=== PATIENT | male | born 1975 | race Caucasian/White ===

== ENCOUNTER 2018-03-13 18:23 | Emergency (ER) | payer BC, SELFPAY ==
[2018-03-13 18:46] VITALS: BP 134/74; PULSE 70; RESP 16; TEMP 36.7; O2SAT 97
--- NOTE | 2018-03-13 19:47 | W.ED.GENAD ---
Discharge Plan Disposition Patient Disposition: HOME Condition: Stable Discharge Details Chief Complaint: EyeProblem Clinical Impression: Foreign body of left eye, Corneal abrasion, left Primary Care Provider: Frederic Banerjee ED Provider: Sallie Purdy Discharge Instructions Instructions: Corneal Abrasion (ED), Eye Foreign Body (ED) Additional Instructions: Apply 2 drops of gentamicin ophthalmic solution in your left eye 6 times daily for the next 5 days. Take Tylenol or Motrin as needed and directed for pain. You should receive a call from care management regarding follow-up with [facility] within the next 1-2 weeks for reevaluation. Return to the emergency department with any worsening or new concerning symptoms. Discharge Data Discharge Date/Time-TO BE ENTERED AT DEPARTURE: 03/13/18 20:08 Discharge Physician: Sallie Purdy Medical Decision Making 42yo M who presents for L eye irritation that started this afternoon while working on a roof at home. No contacts/glasses. Denies blurry vision or discharge. Tetanus up to date. There is a 1-2 mm white speck noted at 1:00 in the left cornea. Tetracaine was applied to left eye and this was easily removed with a cotton swab. fluorescein staining and examining with wood's lamp and slit lamp revealed a corneal abrasion in the same location. No other foreign bodies noted with full exam and eyelid eversion. Patient has allergy to sulfa. Patient declined ointment. Gentamicin ophthalmic drops were placed in left eye and bottle was given for home. Per nurse, visual acuity was within normal limits. There is no documented visual acuity in chart that I was able to locate. Patient admitted to feeling much improved prior to discharge. Patient was placed on care management list to arrange for a follow-up appointment with [facility] in the next 1-2 weeks. Patient was instructed to return to the emergency department with any worsening or new concerning symptoms. HPI General Mode of arrival: ambulatory. Date/Time Provider Initiated Documentation: 03/13/18 18:48. Limitations to Documentation: no limitations. Information obtained by: patient. HPI Narrative: 42-year-old male presents with left eye irritation since this afternoon after working on a roof at home. Patient states he feels like he has something in his eye. He denies blurry vision or discharge. He does not wear contacts or glasses. He states his tetanus is up-to-date within the last 5 years. Past medical history: None Surgical history: None Social history: 4-5 beers daily, daily marijuana use, denies smoking Medications: None Allergies: Sulfa PCP: [facility] Related Data Allergies Allergy/AdvReac Type Severity Reaction Status Date / Time Sulfa (Sulfonamide Allergy Unverified 03/13/18 18:50 Antibiotics) General Stated Complaint: EyeProblem EVANGELINA: 3 Review of Systems Review of Systems All systems reviewed & are unremarkable except as noted in HPI and below PFSH Social History Smoking/Tobacco Use Status: Never Exam Const General: cooperative and healthy appearing Orientation: alert and awake HENMT Head: normal to inspection Ears: hearing grossly normal bilaterally and external ears normal General nose exam: external nose normal Face and sinus: normal facial exam Mouth: oral mucosae normal Eyes General: appearance normal, both eyes and all related structures Visual Arias: normal visual arias by confrontation Alignment and Position: alignment normal Periorbital: periorbital findings normal Eyelids: eyelids normal Conjunctivae: conjunctivae normal Sclera: sclerae normal Cornea: other (1-2 mm white speck noted on left cornea at 1:00. No other foreign body noted. No discharge. ) Pupils: PERRL EOM: EOM intact bilaterally Neck Neck: normal visual inspection Lymphatic: no lymphadenopathy noted Resp Effort & Inspection: normal respiratory effort and able to speak in complete sentences Cardio Rate: regular rate Skin General skin exam: no rashes or lesions noted Neuro General: alert and awake Cognition: normal cognition Speech: speech normal Gait: normal gait Extrem General: normal to inspection and full ROM Psych Appearance: grossly normal Mental Status: mental status grossly normal Speech and Movement: speech and movement normal Affect: normal affect Thought Process: normal Course Vital Signs Temperature 98.1 F 03/13/18 18:46 Pulse 70 03/13/18 18:46 Respiratory Rate 16 03/13/18 18:46 Blood Pressure 134/74 03/13/18 18:46 Pulse Oximetry 97 03/13/18 18:46 Temperature 98.1 F 03/13/18 18:46 Temperature Source Skin 03/13/18 18:46 Pulse 70 03/13/18 18:46 Respiratory Rate 16 03/13/18 18:46 Respiratory Effort 03/13/18 18:47 Blood Pressure 134/74 03/13/18 18:46 Blood Pressure Position Sitting 03/13/18 18:46 Pulse Oximetry 97 03/13/18 18:46 Oxygen Delivery Method Room Air 03/13/18 18:46 Oxygen Flow Rate 0 03/13/18 18:46
--- NOTE | 2018-03-13 19:52 | ED.GENADUL_ITS ---
Discharge Plan Disposition Patient Disposition: HOME Condition: Stable Discharge Details Chief Complaint: EyeProblem Clinical Impression: Foreign body of left eye, Corneal abrasion, left Primary Care Provider: Frederic Banerjee ED Provider: Sallie Purdy Discharge Instructions Instructions: Corneal Abrasion (ED), Eye Foreign Body (ED) Additional Instructions: Apply 2 drops of gentamicin ophthalmic solution in your left eye 6 times daily for the next 5 days. Take Tylenol or Motrin as needed and directed for pain. You should receive a call from care management regarding follow-up with [facility] within the next 1-2 weeks for reevaluation. Return to the emergency department with any worsening or new concerning symptoms. Discharge Data Discharge Date/Time-TO BE ENTERED AT DEPARTURE: 03/13/18 20:08 Discharge Physician: Sallie Purdy Medical Decision Making 42yo M who presents for L eye irritation that started this afternoon while working on a roof at home. No contacts/glasses. Denies blurry vision or discharge. Tetanus up to date. There is a 1-2 mm white speck noted at 1:00 in the left cornea. Tetracaine was applied to left eye and this was easily removed with a cotton swab. fluorescein staining and examining with wood's lamp and slit lamp revealed a corneal abrasion in the same location. No other foreign bodies noted with full exam and eyelid eversion. Patient has allergy to sulfa. Patient declined ointment. Gentamicin ophthalmic drops were placed in left eye and bottle was given for home. Per nurse, visual acuity was within normal limits. There is no documented visual acuity in chart that I was able to locate. Patient admitted to feeling much improved prior to discharge. Patient was placed on care management list to arrange for a follow-up appointment with [facility] in the next 1-2 weeks. Patient was instructed to return to the emergency department with any worsening or new concerning symptoms. HPI General Mode of arrival: ambulatory . Date/Time Provider Initiated Documentation: 03/13/18 18:48 . Limitations to Documentation: no limitations . Information obtained by: patient . HPI Narrative: 42-year-old male presents with left eye irritation since this afternoon after working on a roof at home. Patient states he feels like he has something in his eye. He denies blurry vision or discharge. He does not wear contacts or glasses. He states his tetanus is up-to-date within the last 5 years. Past medical history: None Surgical history: None Social history: 4-5 beers daily, daily marijuana use, denies smoking Medications: None Allergies: Sulfa PCP: [facility] Related Data Allergies Allergy/AdvReac Type Severity Reaction Status Date / Time Sulfa (Sulfonamide Allergy Unverified 03/13/18 18:50 Antibiotics) General Stated Complaint: EyeProblem EVANGELINA: 3 Review of Systems Review of Systems All systems reviewed & are unremarkable except as noted in HPI and below PFSH Social History Smoking/Tobacco Use Status: Never Exam Const General: cooperative and healthy appearing Orientation: alert and awake HENMT Head: normal to inspection Ears: hearing grossly normal bilaterally and external ears normal General nose exam: external nose normal Face and sinus: normal facial exam Mouth: oral mucosae normal Eyes General: appearance normal, both eyes and all related structures Visual Arias: normal visual arias by confrontation Alignment and Position: alignment normal Periorbital: periorbital findings normal Eyelids: eyelids normal Conjunctivae: conjunctivae normal Sclera: sclerae normal Cornea: other (1-2 mm white speck noted on left cornea at 1:00. No other foreign body noted. No discharge. ) Pupils: PERRL EOM: EOM intact bilaterally Neck Neck: normal visual inspection Lymphatic: no lymphadenopathy noted Resp Effort & Inspection: normal respiratory effort and able to speak in complete sentences Cardio Rate: regular rate Skin General skin exam: no rashes or lesions noted Neuro General: alert and awake Cognition: normal cognition Speech: speech normal Gait: normal gait Extrem General: normal to inspection and full ROM Psych Appearance: grossly normal Mental Status: mental status grossly normal Speech and Movement: speech and movement normal Affect: normal affect Thought Process: normal Course Vital Signs Temperature 98.1 F 03/13/18 18:46 Pulse 70 03/13/18 18:46 Respiratory Rate 16 03/13/18 18:46 Blood Pressure 134/74 03/13/18 18:46 Pulse Oximetry 97 03/13/18 18:46 Temperature 98.1 F 03/13/18 18:46 Temperature Source Skin 03/13/18 18:46 Pulse 70 03/13/18 18:46 Respiratory Rate 16 03/13/18 18:46 Respiratory Effort 03/13/18 18:47 Blood Pressure 134/74 03/13/18 18:46 Blood Pressure Position Sitting 03/13/18 18:46 Pulse Oximetry 97 03/13/18 18:46 Oxygen Delivery Method Room Air 03/13/18 18:46 Oxygen Flow Rate 0 03/13/18 18:46
[2018-03-13 20:06] VITALS: BP 134/74; PULSE 70; RESP 16; TEMP 36.7; O2SAT 97
[2018-03-13] MEDS: Tetracaine 0.5% 4 ML BTL (20:06)
== END 2018-03-13 20:08 | disposition home or self-care (01) ==
LOC: ER 20:03
PROVIDERS: Emergency Provider Physician Assistant; PCP Family Medicine
DX: S05.02XA Injury of conjunctiva and corneal abrasion without foreign body, left eye, initial encounter (principal); T15.92XA Foreign body on external eye, part unspecified, left eye, initial encounter
CPT/HCPCS: 65222